=== PATIENT | female | born 1995 | race Caucasian/White ===

== ENCOUNTER → 2018-07-14 | Outpatient (CLI) | payer BC | LOC: FIMAGING 19:21 | PROVIDERS: ATTEND Orthopaedic Surgery | DX: S43.432A Superior glenoid labrum lesion of left shoulder, initial encounter (principal) ==

== ENCOUNTER 2018-11-27 20:59 | Emergency (ER) | payer BC, OTHER ==
--- NOTE | 2018-11-27 21:15 | EDPHY ---
H & P Stated Complaint: flu like symptoms, fever, bodyaches, sinus, and cough Time Seen by Provider: 11/27/18 21:11 HPI/ROS: HPI: This is a 23-year-old female who presents with Chief Complaint: flu like symptoms, fever, bodyaches, sinus pressure, and cough Location: Body Quality: Fever Duration: 2-3 hours prior to arrival Signs and Symptoms: + fever, no nausea, no vomiting, no diarrhea, no urinary symptoms, no chest pain, no shortness of breath, no wheezing, + dry cough, + sore throat, no neck stiffness, no joint pain, no swollen glands, no ear pain, no rash, + body aches Timing: Rapid onset, constant Severity: Moderate Context: Patient is generally healthy, reports to 3 hr ago sudden onset of fever T-max 101 F, body aches, sinus pressure and nonproductive cough. She reports that she believes that she may have the flu. Did not receive influenza vaccine this year. Denies recent foreign travel. She denies headache, vision changes, abdominal pain, urinary symptoms. No history of lung disease. Modifying Factors: Has not taking any [id number] medications. Comment: ROS: A comprehensive 10 system review of systems is otherwise negative aside from elements mentioned in the history of present illness. MEDICAL/SURGICAL/SOCIAL HISTORY: Medical history: Generally healthy. LMP 2-3 weeks ago. Takes oral control pills. 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 Family history noncontributory. CONSTITUTIONAL: Ill but nontoxic-appearing young adult white female, awake and alert, no obvious distress HEENT: Atraumatic and normocephalic, PERRL, EOMI. Nares patent; no rhinorrhea; no nasal mucosal edema. Tympanic membranes clear. Oropharynx clear, left tonsil 1+ and right tonsil no hypertrophy; tonsils have no redness; no exudate, uvula midline, and moist pink mucosa. Airway patent. No lymphadenopathy. No meningismus. Cardiovascular: Normal S1/S2, regular rate, regular rhythm, without murmur rub or gallop. PULMONARY/CHEST: Symmetrical and nontender. Clear to auscultation bilaterally. Good air movement. No accessory muscle usage. ABDOMEN: Soft, nondistended, nontender, no rebound, no guarding, no peritoneal signs, no masses or organomegaly. No CVAT. EXTREMITIES: 2/2 pulses, strength 5/5, no deformities, no clubbing, no cyanosis or edema. NEUROLOGICAL: no focal neuro deficits. GCS 15. Speech clear. SKIN: Warm and dry, no erythema. no rash. Good capillary refill. Source: Patient Exam Limitations: No limitations - Personal History LMP (Females 10-55): 15-21 Days Ago Current Tetanus/Diphtheria Vaccine: Yes Current Tetanus Diphtheria and Acellular Pertussis (TDAP): Yes - Medical/Surgical History Hx Asthma: No Hx Chronic Respiratory Disease: No Hx Diabetes: No Hx Cardiac Disease: No Hx Renal Disease: No Hx Cirrhosis: No Hx Alcoholism: No Hx HIV/AIDS: No Hx Splenectomy or Spleen Trauma: No Other PMH: wisdom teeth sx. - Social History Smoking Status: Never smoked Constitutional: Initial Vital Signs Heart Rate 89 11/27/18 21:07 Respiratory Rate 18 11/27/18 21:07 Blood Pressure 135/81 H 11/27/18 21:07 O2 Sat (%) 98 11/27/18 21:07 O2 Delivery Mode Room Air Allergies/Adverse Reactions: adhesive tape Allergy (Verified 11/27/18 21:06) polypodium leucotomos extract [From [employer]] Allergy (Verified 11/27/18 21:06) Home Medications: Medication Instructions Recorded Fish Oil 1000 mg (*) 11/27/18 Multivitamin 11/27/18 Oseltamivir Phosphate [Tamiflu 75 75 mg PO BID 5 Days #10 cap 11/27/18 mg (*)] Vitamin D3 11/27/18 Medical Decision Making ED Course/Re-evaluation: Vital signs reviewed and show pyrexia. Patient politely declines laboratory studies and chest x-ray which I feel is reasonable as she does not have sepsis and does have a clear lung exam. Will prophylactically treat for Tamiflu. Given Tamiflu and Decadron 10 mg in the ED and Tamiflu prescription. Advised supportive care No signs of meningitis, dehydration, otitis media, sinusitis. This patient was seen under the supervision of my secondary supervising physician. I evaluated and cared for this patient with attending. Differential Diagnosis: Adult fever including but not limited to viral syndromes including influenza, urinary tract infection, pneumonia and sepsis. Departure - Departure Disposition: Home, Routine, Self-Care Clinical Impression: Influenza-like illness Condition: Good Instructions: Influenza (ED) Additional Instructions: Rest as much as possible until you are feeling better. Consume a minimum of 8-10 glasses of water or electrolyte fluid replacement drinks that include Gatorade, Powerade, Pedialyte. Eat a bland diet for the next 48 hours and then slowly advance as tolerated. Take Tamiflu twice a day x 5 days. Take Tylenol 650 mg every 4 hours and/or Ibuprofen 600 mg every 8 hours with food as needed for pain/fever. Return to the ER immediately if you experience fevers/chills, shortness of breath, abdominal pain, inability to tolerate oral intake, or any other symptoms that concern you. Referrals: Harriett Baldwin NP [[facility] [place] Primary Care Provider] - 5-7 days, if not improved Prescriptions: Oseltamivir Phosphate [Tamiflu 75 mg (*)] 75 mg PO BID 5 Days #10 cap
[2018-11-27] MEDS ORDERED: DEXAMETHASONE 4 MG TAB PO ONE (21:30)
[2018-11-27] MEDS ORDERED: OSELTAMIVIR PHOSPHATE 75 MG CAP PO ONE (21:31)
[2018-11-27 21:39] VITALS: BP 134/91
[2018-11-27] MEDS ORDERED: ONDANSETRON 4MG PREPACK#2 BTL TAKEHOME ONE (22:44)
== END 2018-11-27 21:52 | disposition home or self-care (01) ==
DX: R50.9 Fever, unspecified (principal); M79.10 Myalgia, unspecified site; J34.89 Other specified disorders of nose and nasal sinuses; R05 Cough

== ENCOUNTER 2018-11-29 21:47 | Emergency (ER) | payer OTHER ==
--- NOTE | 2018-11-29 22:08 | EDPHY ---
H & P Stated Complaint: LUQ pain when laughing, nausea. recently dx with mono and strep Time Seen by Provider: 11/29/18 22:03 HPI/ROS: HPI: This is a 23-year-old female who presents with Chief Complaint: LUQ pain when laughing, nausea. recently dx with mono and strep Location: Left upper quadrant Quality: Pain Duration: Since this afternoon Signs and Symptoms: no fever, + nausea, no vomiting, no diarrhea, no urinary symptoms, no chest pain, no shortness of breath, no wheezing, no cough, + sore throat, no neck stiffness, no joint pain, + swollen glands, no ear pain, no rash Timing: Acute Severity: Moderate Context: Patient presents with complaints of left upper quadrant pain when laughing accompanied by nausea that started this afternoon. She denies any vomiting, fevers. She was seen by myself in this emergency room 2 days ago with sudden onset of fever, nonproductive cough and body aches. She politely declined any laboratory testing or chest x-ray and was diagnosed with influenza and started on Tamiflu. Patient was given Decadron in the emergency room. Patient reports that Thursday she started to feel better but by Thursday evening the fever returned. This morning she went to [facility] and was seen by a provider that she does not remember the name and had a fingerstick performed and tested positive for mono. Patient reports that she had mono in high school. She was also diagnosed with tonsillitis with a negative rapid strep test and started on amoxicillin and steroids. She took prednisone 60 mg today. She reports that she has a decreased appetite but is still drinking fluids and eating foods. She currently has a Throat lozenge in her mouth. Modifying Factors: See above Comment: ROS: A comprehensive 10 system review of systems is otherwise negative aside from elements mentioned in the history of present illness. MEDICAL/SURGICAL/SOCIAL HISTORY: Medical history: Generally healthy. Does not take any regular medications. Surgical history: [place] teeth removal Social history: Denies alcohol, drugs, tobacco use. Family history noncontributory. CONSTITUTIONAL: Nontoxic-appearing, young adult white female, awake and alert, no obvious distress HEENT: Atraumatic and normocephalic, PERRL, EOMI. Nares patent; no rhinorrhea; no nasal mucosal edema. Tympanic membranes clear. Oropharynx clear, tonsils 1 + with no exudate; uvula midline and moist pink mucosa. Airway patent. + spotty anterior cervical lymphadenopathy. No meningismus. Cardiovascular: Normal S1/S2, regular rate, regular rhythm, without murmur rub or gallop. PULMONARY/CHEST: Symmetrical and nontender. Clear to auscultation bilaterally. Good air movement. No accessory muscle usage. ABDOMEN: Soft, nondistended, mild left upper quadrant tenderness, no rebound, no guarding, no peritoneal signs, no masses or organomegaly. No CVAT. EXTREMITIES: 2/2 pulses, strength 5/5, no deformities, no clubbing, no cyanosis or edema. NEUROLOGICAL: no focal neuro deficits. GCS 15. Speech clear. SKIN: Warm and dry, no erythema. no rash. Good capillary refill. Source: Patient, Old records Exam Limitations: No limitations - Personal History Current Tetanus/Diphtheria Vaccine: Yes Current Tetanus Diphtheria and Acellular Pertussis (TDAP): Yes - Medical/Surgical History Hx Asthma: No Hx Chronic Respiratory Disease: No Hx Diabetes: No Hx Cardiac Disease: No Hx Renal Disease: No Hx Cirrhosis: No Hx Alcoholism: No Hx HIV/AIDS: No Hx Splenectomy or Spleen Trauma: No Other PMH: wisdom teeth sx. - Social History Smoking Status: Never smoked Constitutional: Initial Vital Signs Temperature (C) 36.8 C 11/29/18 21:50 Heart Rate 78 11/29/18 21:50 Respiratory Rate 20 11/29/18 21:50 Blood Pressure 126/82 H 11/29/18 21:50 O2 Sat (%) 97 11/29/18 21:50 O2 Delivery Mode Room Air Allergies/Adverse Reactions: adhesive tape Allergy (Verified 11/29/18 21:49) polypodium leucotomos extract [From [employer]] Allergy (Verified 11/29/18 21:49) Home Medications: Medication Instructions Recorded Fish Oil 1000 mg (*) 11/27/18 Multivitamin 11/27/18 Oseltamivir Phosphate [Tamiflu 75 75 mg PO BID 5 Days #10 cap 11/27/18 mg (*)] Vitamin D3 11/27/18 Medical Decision Making - Diagnostics Imaging Results: Imaging Impressions Abdomen Ultrasound 11/29/18 22:19 Impression: Normal-size spleen. Findings discussed with Emergency Department physician, Dr. Frankel at 2018 23:03. ED Course/Re-evaluation: Vital signs reviewed and stable upon arrival. No systemic signs. IV access, laboratory studies, rapid strep, influenza, mono, abdominal ultrasound ordered 2305: Called by radiologist, Dr. Tam, who reports abdominal ultrasound is unremarkable. No splenomegaly. Given 2 L normal saline, IV Decadron 10 mg, IV Toradol 30 mg, IV promethazine 12.5 mg with adequate relief 2345: Called by radiologist, Dr. Tam, who reports abdominal ultrasound is unremarkable. 0005: Laboratory studies reviewed. No signs of leukocytosis/anemia/platelet dysfunction/REGAN/elevated LFTs/electrolyte imbalance/pancreatitis/influenza/mono/ strep. ESR and CRP are elevated. 0006: Discussed at bedside laboratory results and ultrasound results with patient and both parents via phone. Recommended inpatient admission due to ER visit and outpatient visit today without relief of symptoms. Patient and parents politely declined. I have advised him to continue all medications as prescribed. No signs of tonsillar abscess, sepsis, meningitis, dehydration This patient was seen under the supervision of my secondary supervising physician. I evaluated and cared for this patient with attending. Differential Diagnosis: Adult fever including but not limited to viral syndromes including influenza, urinary tract infection, pneumonia and sepsis. - Data Points Laboratory Results: Laboratory Results 11/29/18 22:30 11/29/18 22:30 11/29/18 11/29/18 11/29/18 Unknown 22:30 22:30 WBC RBC Hgb Hct MCV MCH MCHC RDW Plt Count MPV Neut % (Auto) Lymph % (Auto) [place] % (Auto) Eos % (Auto) Baso % (Auto) Nucleat RBC Rel Count Absolute Neuts (auto) Absolute Lymphs (auto) Absolute Monos (auto) Absolute Eos (auto) Absolute Basos (auto) Absolute Nucleated RBC Immature Gran % Immature Gran # ESR Sodium Potassium Chloride Carbon Dioxide Anion Gap BUN Creatinine Estimated GFR Glucose Calcium Total Bilirubin Conjugated Bilirubin Unconjugated Bilirubin AST ALT Alkaline Phosphatase C-Reactive Protein Total Protein Albumin Urine Color Urine Appearance Urine pH Ur Specific [place] Urine Protein Urine Ketones Urine Blood Urine Nitrate Urine Bilirubin Urine Urobilinogen Ur Leukocyte Esterase Urine RBC Urine WBC Ur Epithelial Cells Urine Bacteria Urine Mucus Urine Glucose Nasal Influenza A PCR NEGATIVE FOR FLU A (NEGATIVE) Nasal Influenza B PCR NEGATIVE FOR FLU B (NEGATIVE) Monoscreen NEGATIVE (NEGATIVE) Group A Strep Screen NEGATIVE (NEGATIVE) Group A Strep DNA Pending 11/29/18 11/29/18 11/29/18 22:30 22:30 22:28 WBC 8.23 10^3/uL 10^3/uL (3.80-9.50) RBC 4.18 10^6/uL 10^6/uL (4.18-5.33) Hgb 13.3 g/dL g/dL (12.6-16.3) Hct 40.0 % % (38.0-47.0) MCV 95.7 fL fL (81.5-99.8) MCH 31.8 pg pg (27.9-34.1) MCHC 33.3 g/dL g/dL (32.4-36.7) RDW 12.7 % % (11.5-15.2) Plt Count 346 10^3/uL 10^3/uL (150-400) MPV 10.4 fL fL (8.7-11.7) Neut % (Auto) 86.8 % H % (39.3-74.2) Lymph % (Auto) 9.8 % L % (15.0-45.0) [place] % (Auto) 3.0 % L % (4.5-13.0) Eos % (Auto) 0.1 % L % (0.6-7.6) Baso % (Auto) 0.1 % L % (0.3-1.7) Nucleat RBC Rel Count 0.0 % % (0.0-0.2) Absolute Neuts (auto) 7.13 10^3/uL H 10^3/uL (1.70-6.50) Absolute Lymphs (auto) 0.81 10^3/uL L 10^3/uL (1.00-3.00) Absolute Monos (auto) 0.25 10^3/uL L 10^3/uL (0.30-0.80) Absolute Eos (auto) 0.01 10^3/uL L 10^3/uL (0.03-0.40) Absolute Basos (auto) 0.01 10^3/uL L 10^3/uL (0.02-0.10) Absolute Nucleated RBC 0.00 10^3/uL 10^3/uL (0-0.01) Immature Gran % 0.2 % % (0.0-1.1) Immature Gran # 0.02 10^3/uL 10^3/uL (0.00-0.10) ESR 27 MM/HR H MM/HR (0-20) Sodium 135 mEq/L mEq/L (135-145) Potassium 4.3 mEq/L mEq/L (3.5-5.2) Chloride 103 mEq/L mEq/L (97-110) Carbon Dioxide 24 mEq/l mEq/l (22-31) Anion Gap 8 mEq/L mEq/L (6-14) BUN 8 mg/dL mg/dL (7-23) Creatinine 0.7 mg/dL mg/dL (0.6-1.0) Estimated GFR > 60 Glucose 142 mg/dL H mg/dL (70-100) Calcium 9.1 mg/dL mg/dL (8.5-10.4) Total Bilirubin 0.2 mg/dL mg/dL (0.1-1.4) Conjugated Bilirubin 0.2 mg/dL mg/dL (0.0-0.5) Unconjugated Bilirubin 0.0 mg/dL mg/dL (0.0-1.1) AST 23 IU/L IU/L (14-46) ALT 18 IU/L IU/L (9-52) Alkaline Phosphatase 53 IU/L IU/L (38-126) C-Reactive Protein 65.3 mg/L H mg/L (<10.0) Total Protein 6.8 g/dL g/dL (6.3-8.2) Albumin 4.0 g/dL g/dL (3.5-5.0) Urine Color YELLOW Urine Appearance HAZY Urine pH 6.0 (5.0-7.5) Ur Specific [place] 1.021 (1.002-1.030) Urine Protein NEGATIVE (NEGATIVE) Urine Ketones TRACE H (NEGATIVE) Urine Blood NEGATIVE (NEGATIVE) Urine Nitrate NEGATIVE (NEGATIVE) Urine Bilirubin NEGATIVE (NEGATIVE) Urine Urobilinogen NEGATIVE EU EU (0.2-1.0) Ur Leukocyte Esterase NEGATIVE (NEGATIVE) Urine RBC 1-3 /hpf /hpf (0-3) Urine WBC 1-3 /hpf /hpf (0-3) Ur Epithelial Cells 1+ /lpf /lpf (NONE-1+) Urine Bacteria 1+ /hpf H /hpf (NONE SEEN) Urine Mucus TRACE /lpf /lpf (NONE-1+) Urine Glucose 3+ H (NEGATIVE) Nasal Influenza A PCR Nasal Influenza B PCR Monoscreen Group A Strep Screen Group A Strep DNA Medications Given: Discontinued Medications Dexamethasone (Decadron Injection) 10 mg IVP EDNOW ONE Stop: 11/29/18 22:19 Last Admin: 11/29/18 22:46 Dose: 10 mg Sodium Chloride (Ns) 1,000 mls @ 0 mls/hr IV EDNOW ONE; Wide Open PRN Reason: Protocol Stop: 11/29/18 22:19 Last Admin: 11/29/18 22:25 Dose: 1,000 mls Sodium Chloride (Ns) 1,000 mls @ 0 mls/hr IV EDNOW ONE; Wide Open PRN Reason: Protocol Stop: 11/29/18 22:19 Last Admin: 11/29/18 22:34 Dose: 1,000 mls Ketorolac Tromethamine (Toradol) 30 mg IVP EDNOW ONE Stop: 11/29/18 22:19 Last Admin: 11/29/18 22:33 Dose: 30 mg Promethazine HCl (Phenergan) 12.5 mg IVP ONCE ONE Stop: 11/29/18 22:19 Last Admin: 11/29/18 22:34 Dose: 12.5 mg Departure - Departure Disposition: Home, Routine, Self-Care Clinical Impression: Influenza-like illness Condition: Good Instructions: Influenza (ED) Additional Instructions: Please take all medications as prescribed with food. Take Zofran every 4-6 hours as needed for nausea, vomiting. Rest as much as possible until you are feeling better. Consume a minimum of 8-10 glasses of water or electrolyte fluid replacement drinks that include Gatorade, Powerade, Pedialyte. Eat a bland diet for the next 48 hours and then slowly advance as tolerated. Referrals: Harriett Baldwin NP [Primary Care Provider] - As per Instructions
[2018-11-29] MEDS ORDERED: NS 1,000 ML IV ONE ×2 (22:18)
[2018-11-29] MEDS ORDERED: DEXAMETHASONE 10 MG/ML VIAL IVP ONE (22:18)
[2018-11-29] MEDS ORDERED: KETOROLAC 30 MG/1 ML SDV IVP ONE (22:18)
[2018-11-29] MEDS ORDERED: PROMETHAZINE HCL 25 MG/ML INJ IVP ONE (22:18)
[2018-11-29 22:39] LABS: PLATELET COUNT 346 10^3/uL (150-400)
[2018-11-30 00:17] VITALS: BP 114/76
== END 2018-11-30 00:16 | disposition home or self-care (01) ==
DX: B27.90 Infectious mononucleosis, unspecified without complication (principal); J03.90 Acute tonsillitis, unspecified; R10.12 Left upper quadrant pain; R11.0 Nausea; E86.9 Volume depletion, unspecified
CPT/HCPCS: 96374; J1100; J1885; J2550